=== PATIENT | male | born 1935 | race Caucasian/White ===

== ENCOUNTER → 2018-07-20 | Outpatient (CLI) | payer MEDICARE ==
--- NOTE | 2018-07-20 11:10 | Diagnostic Imaging Report ---
INDICATION: ROTATOR CUFF SYNDROME RIGHT. TECHNIQUE: 3 views of the right shoulder. COMPARISON: None FINDINGS: No acute fracture or dislocation is seen in the right shoulder. Alignment appears normal. There are mild degenerative changes in the right acromioclavicular joint. 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 Dictated by: Dictated on workstation # [id number]
== END ==
LOC: RAD FS 10:46
PROVIDERS: ATTEND Nurse Practitioner
DX: M19.011 Primary osteoarthritis, right shoulder (principal); M75.101 Unspecified rotator cuff tear or rupture of right shoulder, not specified as traumatic
CPT/HCPCS: 73030